=== PATIENT | female | born 2005 | race Caucasian/White ===

== ENCOUNTER 2023-04-24 01:53 | Emergency (ER) | payer OTHER, SELFPAY ==
[2023-04-24 01:57] VITALS: BP 109/70; BP 111/81; PULSE 71; PULSE 86; RESP 16; TEMP 36.2; O2SAT 100; O2SAT 98; BMI 23.2
--- NOTE | 2023-04-24 03:06 | ED.ALCOHOL ---
HPI - Alcohol General Chief Complaint: ETOH/Substance Use Stated Complaint: ETOH, Nausea, Vomitting Time Seen by Provider: 04/24/23 03:02 Source: EMS Mode of arrival: EMS Limitations: other (Intoxicated) History of Present Illness HPI narrative: Patient comes to the emergency room complaining of alcohol intoxication. Patient's friends called. Patient barely awake, answers a few questions, denies SI or HI, denies any head injuries. Related Data Allergies Allergy/AdvReac Type Severity Reaction Status Date / Time Unable to Assess Allergy Verified 04/24/23 03:09 Review of Systems Review of Systems: Yes Other (Intoxicated) [facility] Past Medical History Source: unable to obtain Social History Social History Advance Directives: No Advance Directives Information Provided: No Physical Exam ED Vital Signs: Vital Signs - 24 hr 04/24/23 01:57 04/24/23 03:47 04/24/23 06:13 Temperature 97.2 F 97.8 F 98.2 F Pulse Rate 86 83 72 Respiratory Rate 16 16 16 Blood Pressure 111/81 110/65 118/61 Pulse Oximetry 100 98 98 Oxygen Delivery Method Room Air Room Air Room Air BMI result Body Mass Index 23.2 Const Other: Appearance: Somnolent, arousable to voice, falls back asleep immediately, no signs of injury Eyes: Pupils equal, round and reactive to light. ENT: Pharynx normal. Neck: Normal inspection. Neck supple. No lymph nodes noted. No crepitus CVS: Normal heart rate and rhythm. Pulses normal. Normal S1 and S2 Respiratory: No respiratory distress. Breath sounds normal. No Wheezing. No rales Abdomen: Soft and nontender. No rigidity. No distention. Skin: Skin warm and dry. Normal skin color. Normal skin turgor. Extremities: No lower extremity edema. No Lacerations. No Rash Neuro: Unable to participate in canal nerve assessment, patient is intoxicated Psych: calm, intoxicated Course Course Course Narrative: -patient's point of care glucose 111 -no signs of injury -patient intoxicated -plan: Metabolize to freedom -physician observation started at 03:00 Medical Decision Making Medical Decision Making MDM Narrative: -throughout the night, patient was on room a physician observation, patient at this time, 07:00 patient is awake, alert and oriented x3, steady gait, clinically sober. [place] police will be coming up picking her up Differential Diagnosis Differential Diagnoses: The differential diagnosis associated with the presentation includes (Alcohol intoxication, polysubstance abuse) Admission/Observation Consideration of admission/observation: Escalation of care including admission/observation considered (Patient will remain under observation onto patient is clinically sober, awake /sober ride picks her up) Lab Data Labs: Lab Results 04/24/23 Range/Units 03:07 POC Glucose 111 (60-115) mg/dL Discharge Plan Discharge Clinical Impression: Alcoholic intoxication Patient Disposition: Home, Self-Care Instructions: Alcohol Intoxication (ED) Additional Instructions: Please follow-up with your primary care physician tomorrow. If you have any worsening or new symptoms, please return to the emergency room or call 911
[2023-04-24 03:12] LABS: Glucose, Whole Blood 111 mg/dL (60-115)
[2023-04-24 03:47] VITALS: BP 110/65; PULSE 83; RESP 16; TEMP 36.6; O2SAT 98
--- NOTE | 2023-04-24 03:48 | MHC.EDTECH ---
Pt awake vitals taken ,Pt awake this Pct offer Pt fluids ,Pt had some apple juice to drink .
[2023-04-24 06:13] VITALS: BP 118/61; PULSE 72; RESP 16; TEMP 36.8; O2SAT 98
--- NOTE | 2023-04-24 06:18 | PC.NURSE ---
pt resting comfortably with eyes closed, breathing even and unlabored, no apparent distress noted at this time
--- NOTE | 2023-04-24 06:20 | PC.NURSE ---
pt ambulated to the bathroom, gait was steady
--- NOTE | 2023-04-24 07:13 | PC.NURSE ---
Took report from off-going RN. Pt is a 17 y/o female who is here s/p ETOH while attending a alliance party at [facility]. Pt is awake, alert, and oriented and has a calm and cooperative demeanor. Pt is independent with ADLs and ambulates without assistance. Pt is pending discharge and return back to [facility]. Staff has been attempting to make contact with parent with no success.
--- NOTE | 2023-04-24 07:18 | PC.NURSE ---
Pt granted permission to reach out to [employer] and/or roommate.
--- NOTE | 2023-04-24 08:01 | PC.NURSE ---
Made contact with mother via phone and pt was able to speak with her. Mother is traveling from [place] to get pt back to campus following discharge.
--- NOTE | 2023-04-24 09:02 | PC.NURSE ---
this RN resumed care at this time. pt resting comfortably in stretcher in no apparent distress. pt awaiting transportation home at this time. will d/c pt when pt's mother arrives to pick pt up. respirations even and unlabored.
== END 2023-04-24 10:00 | disposition home or self-care (01) ==
PROVIDERS: Emergency Provider Emergency Medicine
DX: F10.920 Alcohol use, unspecified with intoxication, uncomplicated (principal); Y90.9 Presence of alcohol in blood, level not specified; R73.9 Hyperglycemia, unspecified
CPT/HCPCS: 82947; 99284